=== PATIENT | female | born 1955 | race Caucasian/White ===

== ENCOUNTER 2020-04-15 19:58 | Emergency (ER) | payer OTHER ==
[~2020-04-15] VITALS: Ht 180.3 cm; Wt 79.4 kg
[2020-04-15 21:45] VITALS: BP 111/70
== END 2020-04-15 21:00 | disposition home or self-care (01) ==
LOC: ER 19:58
DX: S82.832A Other fracture of upper and lower end of left fibula, initial encounter for closed fracture (principal); Z88.1 Allergy status to other antibiotic agents; Z87.891 Personal history of nicotine dependence; W01.0XXA Fall on same level from slipping, tripping and stumbling without subsequent striking against object, initial encounter; Y93.89 Activity, other specified; Y92.89 Other specified places as the place of occurrence of the external cause; Y99.8 Other external cause status